=== PATIENT | female | born 1990 | race Caucasian/White ===

== ENCOUNTER 2019-01-18 18:36 | Emergency (ER) | payer OTHER ==
[~2019-01-18] VITALS: Ht 157.5 cm; Wt 88.0 kg
[~2019-01-18 18:36] MED LIST: IBUP-2218 PO; METF100028 PO; NIFE60TE5 PO
[2019-01-18 18:41] VITALS: BP 157/105
[2019-01-18] MEDS ORDERED: SEMA0.25 SQ (18:53)
[2019-01-18] MEDS ORDERED: LANTUS SUBQ (18:54)
[2019-01-18] MEDS ORDERED: APID SUBQ (18:54)
[2019-01-18] MEDS ORDERED: CIPR500T4 PO (18:56)
[2019-01-18] MEDS ORDERED: LISI2.5T12 PO (18:56)
[2019-01-18] MEDS ORDERED: PANT40EC PO (18:56)
[2019-01-18] MEDS ORDERED: [UNRECOGNIZED DRUG - CODE] PO (18:56)
[2019-01-18] MEDS ORDERED: ONDA4TAB PO (18:56)
--- NOTE | 2019-01-18 20:51 | NUR ---
PT AMBULATED TO BED 02.
--- NOTE | 2019-01-18 21:00 | NUR ---
C/O INTERMITTENT SHARP/BLOATING/PRESSURE EPIGASTRIC PAIN, X3 DAYS. WENT TO PCP TODAY, GIVEN CIPRO. REPORTS N/V, FEELING DEHYDRATED. +TENDERNESS. HX DM, HTN, GASTRITIS, CHOLECSYECTOMY RX CIPRO, PANTOPRAZOLE, ZOFRAN, IMODIUM, LISINOPRIL, OZEMPIC PEN
[2019-01-18] MEDS ORDERED: NACL 0.9% 1,000 ML IV ONE (22:20)
--- NOTE | 2019-01-18 22:28 | NUR ---
PT TO XRAY BY WHEEL CHAIR
[2019-01-18 23:20] LABS: BASOPHILS % (AUTO) 0.4 % (0.0-2.0); EOSINOPHILS # (AUTO) 0.1 K/uL (0-0.4); EOSINOPHILS % (AUTO) 1.4 % (0.0-4.0); HEMATOCRIT 44.5 % (36-48); LYMPHOCYTES # (AUTO) 3.4 K/uL (2.5-16.5); LYMPHOCYTES % (AUTO) 34.5 % (20.5-51.1); MEAN CORPUSCULAR HEMOGLOBIN 29 pg (27-31); MEAN CORPUSCULAR HGB CONC 34 g/dL (33-37); MEAN CORPUSCULAR VOLUME 87.4 fL (80-94); MONOCYTES # (AUTO) 0.6 K/uL (0.8-1.0); MONOCYTES % (AUTO) 6.4 % (1.7-9.3); NEUTROPHILS # (AUTO) 5.7 K/uL (1.8-7.7); NEUTROPHILS % (AUTO) 57.3 % (42.2-75.2); PLATELET COUNT (AUTO) 300 K/uL (140-450); RED BLOOD CELL COUNT(AUTO) 5.09 MIL/uL (4.20-5.40); RED CELL DISTRIBUTION WIDTH 13.1 % (11.6-13.7); WHITE BLOOD COUNT (AUTO) 9.9 K/uL (4.8-10.8)
[2019-01-18 23:27] LABS: ANION GAP 13.1 (8-16); CARBON DIOXIDE 28.1 mmol/L (21-32); CREATININE 0.7 mg/dL (0.6-1.3); POTASSIUM 3.2 mmol/L (3.5-5.1)
[2019-01-18 23:33] LABS: ALBUMIN 4.2 g/dL (3.4-5.0); TOTAL BILIRUBIN 0.5 mg/dL (0.0-1.0)
[2019-01-19] VITALS: BP 140/82
--- NOTE | 2019-01-19 00:02 | NUR ---
Patient discharged with v/s stable. Written and verbal after care instructions given and explained. Patient verbalized understanding. Ambulatory with steady gait. All questions addressed prior to discharge. Advised to follow up with PMD.
--- NOTE | 2019-01-22 07:53 | NUR ---
Late entry confirmed with RN that 1000mml 0.9NSIV bolus was completed at 2409.
== END 2019-01-19 00:02 | disposition home or self-care (01) ==
LOC: MED 18:36
DX: A08.4 Viral intestinal infection, unspecified (principal); Z79.4 Long term (current) use of insulin; Z79.899 Other long term (current) drug therapy
CPT/HCPCS: 36415; 74022; 80053; 81002; 81025; 85025; 96360; 99284

== ENCOUNTER 2019-04-24 18:55 | Emergency (ER) | payer OTHER ==
[~2019-04-24] VITALS: Ht 157.5 cm; Wt 90.7 kg
[~2019-04-24 18:55] MED LIST changes: +APID SUBQ; +CIPR500T4 PO; +LANTUS SUBQ; +LISI2.5T12 PO; -NIFE60TE5 PO; +ONDA4TAB PO; +PANT40EC PO; +SEMA0.25 SQ; +[UNRECOGNIZED DRUG - CODE] PO
[2019-04-24 19:08] VITALS: BP 119/80
--- NOTE | 2019-04-24 19:15 | NUR ---
28 Y/O FEMALE PRESENTS TO ED WITH C/O LLQ ABD CRAMPING, CONSTIPATION X1 WEEK. PT STATES LLQ ABD CRAMPTING SPREADING THROUGHOUT ABD FOR THE PAST WEEK. WAS SEEN BY PCP ON 04/23/19. TREATED WITH ENEMA AND [place]. LAST SOLID "REGULAR" BM WAS 1 WEEK AGO. SHE CONTINUES TO FEEL UNCOMFORTABLE AND PASSING SMALL SOFT STOOL. PLACED IN BED WITH VSS. ER MD AWARE. CONTINUE TO MONITOR.
--- NOTE | 2019-04-24 19:15 | NUR ---
PT AMBULATED TO BED 9, AND GIVEN URINE CUP FOR SAMPLE
[2019-04-24 20:15] VITALS: BP 118/78
--- NOTE | 2019-04-24 20:15 | NUR ---
Patient discharged with v/s stable. Written and verbal after care instructions given and explained. Patient alert, oriented and verbalized understanding of instructions. Ambulatory with steady gait. All questions addressed prior to discharge. ID band removed. Patient advised to follow up with PMD. Rx of MINERAL OIL AND LACTULOSE given. Patient educated on indication of medication including possible reaction and side effects. Opportunity to ask questions provided and answered.
== END 2019-04-24 20:15 | disposition home or self-care (01) ==
LOC: MED 18:55
DX: R10.84 Generalized abdominal pain (principal); R14.0 Abdominal distension (gaseous); E11.9 Type 2 diabetes mellitus without complications; I10 Essential (primary) hypertension; Z79.4 Long term (current) use of insulin; Z79.899 Other long term (current) drug therapy
CPT/HCPCS: 81002; 81025; 99283

== ENCOUNTER 2019-08-29 18:45 | Emergency (ER) | payer OTHER ==
[~2019-08-29] VITALS: Ht 157.5 cm; Wt 93.1 kg
[~2019-08-29 18:45] MED LIST changes: +LOPE-289 PO; -[UNRECOGNIZED DRUG - CODE] PO
[2019-08-29 18:49] VITALS: BP 141/85
--- NOTE | 2019-08-29 18:59 | NUR ---
PT AMBULATED TO BED 2.
--- NOTE | 2019-08-29 19:17 | NUR ---
PT C/O ABD PAIN THAT RADIATES TO FLANK X5 DAYS. PT STATES PAIN IS A BURNING/PRESSURE SENSATION 9/10 PAIN. PT STATES NAUSEA. DENIES V/D. DENIES FEVER. ABD SOFT, ROUND, NONTENDER. PT REPORTS NO APPETITE. RR EVEN AND UNLABORED. LMP 07/25/19. PTS MOTHER AT BEDSIDE. LAYING IN BED, CALM AND PLEASANT. MEDHX: DM, GASTRITIS ALLERGIES: DENIES
[2019-08-29] MEDS ORDERED: FAMOTIDINE 20 MG/2 ML VIAL IVP ONE (19:30)
[2019-08-29] MEDS ORDERED: DICYCLOMINE HCL LIQUID 20 MG, ALUMINUM HYD/MAG/SIMETHICONE 30 ML, LIDOCAINE VISCOUS 2% ... PO ONE ×6 (19:30→21:20)
[2019-08-29] MEDS ORDERED: ONDANSETRON 4 MG/2 ML VIAL IVP ONE (19:30)
[2019-08-29] MEDS ORDERED: MORPHINE SULFATE 4 MG/ML SYR IVP ONE ×2 (19:30→21:20)
[2019-08-29] MEDS ORDERED: NACL 0.9% 1,000 ML IV ONE (19:30)
[2019-08-29 19:44] LABS: BASOPHILS % (AUTO) 0.3 % (0.0-2.0); EOSINOPHILS % (AUTO) 0.5 % (0.0-4.0); HEMATOCRIT 42.9 % (36-48); HEMOGLOBIN 14.3 g/dL (12.0-16.0); LYMPHOCYTES # (AUTO) 1.8 K/uL (2.5-16.5); LYMPHOCYTES % (AUTO) 17.3 % (20.5-51.1); MEAN CORPUSCULAR HEMOGLOBIN 30 pg (27-31); MEAN CORPUSCULAR HGB CONC 33 g/dL (33-37); MEAN CORPUSCULAR VOLUME 88.7 fL (80-94); MONOCYTES # (AUTO) 0.5 K/uL (0.8-1.0); MONOCYTES % (AUTO) 4.5 % (1.7-9.3); NEUTROPHILS # (AUTO) 8.1 K/uL (1.8-7.7); NEUTROPHILS % (AUTO) 77.4 % (42.2-75.2); PLATELET COUNT (AUTO) 316 K/uL (140-450); RED BLOOD CELL COUNT(AUTO) 4.83 MIL/uL (4.20-5.40); WHITE BLOOD COUNT (AUTO) 10.4 K/uL (4.8-10.8)
[2019-08-29 20:17] LABS: APPEARANCE,URINE CLEAR (CLEAR); BILIRUBIN,URINE NEGATIVE (NEGATIVE); BLOOD, URINE TRACE-L (NEGATIVE); COLOR,URINE YELLOW (YELLOW); LEUKOCYTE ESTERASE ,URINE NEGATIVE (NEGATIVE); NITRITE, URINE NEGATIVE (NEGATIVE); UGLUCOSE NEGATIVE (NEGATIVE)
--- NOTE | 2019-08-29 20:28 | NUR ---
PT AMBULATED TO RESTROOM.
[2019-08-29 20:50] LABS: ALBUMIN 3.8 g/dL (3.4-5.0); ANION GAP 13.2 (8-16); CARBON DIOXIDE 28.8 mmol/L (21-32); CREATININE 0.6 mg/dL (0.6-1.3); TOTAL BILIRUBIN 0.4 mg/dL (0.0-1.0)
[2019-08-29 21:09] LABS: RBC,URINE 0-5 /HPF (0-5); WBC,URINE NONE SEEN /HPF (0-5)
--- NOTE | 2019-08-29 21:20 | NUR ---
PT C/O INCREASING ABD PAIN. DR TRIPATHI MADE AWARE.
--- NOTE | 2019-08-29 21:45 | NUR ---
PT AMBULATED TO RESTROOM.
--- NOTE | 2019-08-29 22:49 | NUR ---
PT STATES RELIEF OF PAIN AT THIS TIME. MOTHER AT BEDSIDE. VSS. WILL CONTINUE TO MONITOR.
--- NOTE | 2019-08-29 23:04 | NUR ---
Patient discharged with v/s stable. Written and verbal after care instructions given and explained. Patient alert, oriented and verbalized understanding of instructions. Ambulatory with to home. All questions addressed prior to discharge. ID band removed. Patient advised to follow up with PMD. Rx of ZOFRAN, SUCRALFATE, AND PROTONIX given. Patient educated on indication of medication including possible reaction and side effects. Opportunity to ask questions provided and answered. ACCOMPANIED BY MOTHER.
[2019-08-29 23:05] VITALS: BP 138/86
== END 2019-08-29 23:04 | disposition home or self-care (01) ==
LOC: MED 18:45
DX: R10.9 Unspecified abdominal pain (principal); R11.0 Nausea; E11.9 Type 2 diabetes mellitus without complications; I10 Essential (primary) hypertension; Z90.49 Acquired absence of other specified parts of digestive tract; Z98.890 Other specified postprocedural states; Z79.4 Long term (current) use of insulin; Z79.899 Other long term (current) drug therapy
CPT/HCPCS: 36415; 80053; 81001; 81025; 82948; 83690; 84703; 85025; 96374; 96375; 96376; 99283; J2270; J2405; J3490; J7030

== ENCOUNTER 2019-08-30 19:35 | Emergency (ER) | payer OTHER ==
[~2019-08-30] VITALS: Ht 157.5 cm; Wt 93.0 kg
[2019-08-30 19:55] VITALS: BP 132/72
[2019-08-30 21:12] LABS: BASOPHILS % (AUTO) 0.3 % (0.0-2.0); EOSINOPHILS % (AUTO) 0.4 % (0.0-4.0); HEMATOCRIT 40.6 % (36-48); HEMOGLOBIN 13.5 g/dL (12.0-16.0); LYMPHOCYTES % (AUTO) 19.4 % (20.5-51.1); MEAN CORPUSCULAR HEMOGLOBIN 30 pg (27-31); MEAN CORPUSCULAR HGB CONC 33 g/dL (33-37); MEAN CORPUSCULAR VOLUME 89.1 fL (80-94); MONOCYTES # (AUTO) 0.4 K/uL (0.8-1.0); MONOCYTES % (AUTO) 4.1 % (1.7-9.3); NEUTROPHILS % (AUTO) 75.8 % (42.2-75.2); PLATELET COUNT (AUTO) 284 K/uL (140-450); RED BLOOD CELL COUNT(AUTO) 4.55 MIL/uL (4.20-5.40); WHITE BLOOD COUNT (AUTO) 10.5 K/uL (4.8-10.8)
[2019-08-30] MEDS ORDERED: NACL 0.9% 1,000 ML IV ONE (21:25)
[2019-08-30] MEDS ORDERED: ONDANSETRON 4 MG/2 ML VIAL IVP ONE (21:25)
[2019-08-30 21:57] LABS: ANION GAP 13.4 (8-16); CARBON DIOXIDE 27.6 mmol/L (21-32)
[2019-08-30 21:58] LABS: ALBUMIN 3.6 g/dL (3.4-5.0); CREATININE 0.6 mg/dL (0.6-1.3); TOTAL BILIRUBIN 0.4 mg/dL (0.0-1.0)
[2019-08-30] MEDS ORDERED: DICYCLOMINE HCL LIQUID 10 MG/5 ML UDC PO ONE (22:30)
[2019-08-30] MEDS ORDERED: ALUMINUM HYD/MAG/SIMETHICONE 30 ML UDC PO ONE (22:30)
[2019-08-30] MEDS ORDERED: KETOROLAC 30 MG/ML VIAL IVP ONE (22:30)
[2019-08-30] MEDS ORDERED: LIDOCAINE VISCOUS 2% 20 ML UDC PO ONE (22:30)
[2019-08-30] MEDS ORDERED: fentaNYL 0.05 MG/ML VIAL IVP ONE (23:10)
[2019-08-31 00:22] VITALS: BP 129/65
== END 2019-08-31 00:22 | disposition home or self-care (01) ==
LOC: MED 19:35
DX: K27.9 Peptic ulcer, site unspecified, unspecified as acute or chronic, without hemorrhage or perforation (principal); E11.9 Type 2 diabetes mellitus without complications; I10 Essential (primary) hypertension; Z79.899 Other long term (current) drug therapy; Z79.4 Long term (current) use of insulin; Z79.1 Long term (current) use of non-steroidal anti-inflammatories (NSAID)
CPT/HCPCS: 36415; 80053; 81002; 81025; 83690; 85025; 96374; 96375; 99283; J1885; J2405; J3010; J7030

== ENCOUNTER 2019-09-17 18:03 | Emergency (ER) | payer OTHER ==
[~2019-09-17] VITALS: Ht 157.5 cm; Wt 93.0 kg
[2019-09-17 18:26] VITALS: BP 118/77
--- NOTE | 2019-09-17 21:07 | NUR ---
PT AMBULATED TO BED 06
--- NOTE | 2019-09-17 21:10 | NUR ---
28/F PRESENTED TO ED WT C/O NON RADIATING STERNAL CHEST PAIN 04/22 X2 DAYS. PT REPORTS HAVING HEARTBURN ON MONDAY, BUT THE IT WENT AWAY WHEN TAKING OMEPRAZOLE.BUT STATES FEELING OF CHEST DISCOMFORT IS SIMILAR TO ANXIETY. DENIES N/V. SKIN COOL/DRY, A & O X4. VSS. HX: ANXIETY, DM, HTN RX: XANAX, OMEPRAZOLE, PROPRANOLOL, INSULIN, LISINOPRIL
[2019-09-17 23:20] VITALS: BP 128/73
--- NOTE | 2019-09-17 23:20 | NUR ---
Patient discharged with v/s stable. Written and verbal after care instructions given and explained. Patient alert, oriented and verbalized understanding of instructions. Ambulatory with steady gait. All questions addressed prior to discharge. ID band removed. Patient advised to follow up with PMD. Rx of ATARAX, PRILOSEC given. Patient educated on indication of medication including possible reaction and side effects. Opportunity to ask questions provided and answered.
== END 2019-09-17 23:20 | disposition home or self-care (01) ==
LOC: MED 18:03
DX: K21.9 Gastro-esophageal reflux disease without esophagitis (principal); F41.9 Anxiety disorder, unspecified; E11.9 Type 2 diabetes mellitus without complications; I10 Essential (primary) hypertension; Z90.49 Acquired absence of other specified parts of digestive tract; Z98.890 Other specified postprocedural states; Z79.4 Long term (current) use of insulin; Z79.899 Other long term (current) drug therapy
CPT/HCPCS: 71045; 82948; 93005; 99283

== ENCOUNTER 2019-12-10 19:15 | Emergency (ER) | payer OTHER ==
[~2019-12-10] VITALS: Ht 157.5 cm; Wt 93.0 kg
[2019-12-10 19:34] VITALS: BP 130/80
--- NOTE | 2019-12-10 19:36 | NUR ---
TO LOBBY A/W BED AMBULATORY
--- NOTE | 2019-12-10 19:46 | NUR ---
PT AMBULATED TO ER BED 12
--- NOTE | 2019-12-10 20:31 | NUR ---
28 Y/O F C/O ABDOMINALPAIN 5/10 NAUSEA, DIARRHEA X 2 DAYS. PT STATES SHE TOOK OVER THE COUNTER MEDICATION AT HOME FOR THE ABDOMINAL PAIN, ALLEVIATED SX TEMPORARILY. BOWEL SOUNDS ACTIVE ALL FOUR QUADRANTS. PT POSITIONED FOR COMFORT, VSS, BED LOWERED. MICHEAL
[2019-12-10] MEDS ORDERED: ONDANSETRON 4 MG ODT PO ONE (20:45)
[2019-12-10] MEDS ORDERED: DICYCLOMINE HCL LIQUID 20 MG, ALUMINUM HYD/MAG/SIMETHICONE 30 ML, LIDOCAINE VISCOUS 2% ... PO ONE ×3 (20:45)
[2019-12-10] MEDS ORDERED: LIDOCAINE VISCOUS 2% 20 ML UDC ONE (20:52)
[2019-12-10] MEDS ORDERED: DICYCLOMINE HCL LIQUID 10 MG/5 ML UDC ONE (20:52)
[2019-12-10] MEDS ORDERED: ALUMINUM HYD/MAG/SIMETHICONE 30 ML UDC ONE (20:52)
[2019-12-10 21:02] LABS: BASOPHILS # (AUTO) 0.1 K/uL (0.00-0.22); EOSINOPHILS # (AUTO) 0.1 K/uL (0-0.4); EOSINOPHILS % (AUTO) 0.8 % (0.0-4.0); HEMATOCRIT 40.5 % (36-48); HEMOGLOBIN 13.5 g/dL (12.0-16.0); LYMPHOCYTES # (AUTO) 3.1 K/uL (2.5-16.5); LYMPHOCYTES % (AUTO) 25.9 % (20.5-51.1); MEAN CORPUSCULAR HEMOGLOBIN 29 pg (27-31); MEAN CORPUSCULAR HGB CONC 33 g/dL (33-37); MEAN CORPUSCULAR VOLUME 86.3 fL (80-94); MONOCYTES # (AUTO) 0.7 K/uL (0.8-1.0); MONOCYTES % (AUTO) 6.2 % (1.7-9.3); NEUTROPHILS # (AUTO) 7.9 K/uL (1.8-7.7); NEUTROPHILS % (AUTO) 66.1 % (42.2-75.2); PLATELET COUNT (AUTO) 272 K/uL (140-450); RED BLOOD CELL COUNT(AUTO) 4.69 MIL/uL (4.20-5.40); RED CELL DISTRIBUTION WIDTH 13.3 % (11.6-13.7); WHITE BLOOD COUNT (AUTO) 11.9 K/uL (4.8-10.8)
[2019-12-10 21:20] LABS: ALBUMIN 3.3 g/dL (3.4-5.0); CARBON DIOXIDE 27.9 mmol/L (21-32); CREATININE 0.7 mg/dL (0.6-1.3); POTASSIUM 3.9 mmol/L (3.5-5.1); TOTAL BILIRUBIN 0.2 mg/dL (0.0-1.0)
[2019-12-10] MEDS ORDERED: HYDROcodone/APAP 5/325 MG 1 TAB TAB PO ONE (21:20)
[2019-12-10] MEDS ORDERED: KETOROLAC 30 MG/ML VIAL IM ONE (21:35)
--- NOTE | 2019-12-10 22:00 | NUR ---
Patient discharged with v/s stable. Written and verbal after care instructions given and explained. Patient alert, oriented and verbalized understanding of instructions. Ambulatory with steady gait. All questions addressed prior to discharge. ID band removed. Patient advised to follow up with PMD. Rx of PIPE PARKER given. Patient educated on indication of medication including possible reaction and side effects. Opportunity to ask questions provided and answered.
[2019-12-10 22:17] VITALS: BP 125/75
== END 2019-12-10 22:00 | disposition home or self-care (01) ==
LOC: MED 19:15
DX: K21.9 Gastro-esophageal reflux disease without esophagitis (principal); R10.13 Epigastric pain; E11.9 Type 2 diabetes mellitus without complications; I10 Essential (primary) hypertension; Z79.899 Other long term (current) drug therapy
CPT/HCPCS: 36415; 80053; 81002; 81025; 82150; 83690; 85025; 96372; 99283; J1885; Q0162

== ENCOUNTER 2023-10-01 03:38 | Emergency (ER) | payer OTHER ==
[~2023-10-01] VITALS: Ht 157.5 cm; Wt 103.4 kg
[2023-10-01 03:45] VITALS: BP 140/79; PULSE 98; RESP 19; TEMP 98.8; O2SAT 100
[2023-10-01 04:21] LABS: APPEARANCE,URINE CLEAR (CLEAR); BILIRUBIN,URINE NEGATIVE (NEGATIVE); BLOOD, URINE NEGATIVE (NEGATIVE); COLOR,URINE YELLOW (YELLOW); LEUKOCYTE ESTERASE ,URINE NEGATIVE (NEGATIVE); NITRITE, URINE NEGATIVE (NEGATIVE); PROTEIN,URINE NEGATIVE (NEGATIVE); UGLUCOSE NEGATIVE (NEGATIVE); UROBILINOGEN,URINE 0.2 EU/dL (0.2 - 1)
[2023-10-01 05:35] VITALS: BP 140/79; PULSE 98; RESP 19; TEMP 98.8; O2SAT 100
== END 2023-10-01 05:35 | disposition left against medical advice (07) ==
LOC: MED 03:38
DX: R10.30 Lower abdominal pain, unspecified (principal); Z53.21 Procedure and treatment not carried out due to patient leaving prior to being seen by health care provider
CPT/HCPCS: 81003; 99281